=== PATIENT | female | born 1940 | race Caucasian/White ===

== ENCOUNTER 2017-05-29 15:07 | Emergency (ER) | payer MEDICARE, BC ==
[~2017-05-29] VITALS: Ht 170.2 cm; Wt 56.2 kg
[~2017-05-29 15:07] MED LIST: ALPR.25; ASPI81CH; ESOM20; Estradiol Tran1 EAC1; FLAXSEED1000 MG; GLUC500; LISI5 PO; Lisinopril2.5 MG; MAGOXI400; MULTI VITAMIN1 EACH; Omega 3 Fish O1 EACH; PROG100; SERT100; TEMA15
[2017-05-29 16:12] LABS: BASOPHILS ABSOLUTE AUTO 0.02 K/mm3 (0.00-0.23); BASOPHILS PERCENT AUTO 0 % (0-2); EOSINOPHILS ABSOLUTE AUTO 0.06 K/mm3 (0.00-0.68); EOSINOPHILS PERCENT AUTO 1 % (0-6); Hematocrit 33.7 % (33.0-51.0); Hemoglobin 11.1 g/dL (11.5-16.0); IMMATURE GRAN ABSOLUTE AUTO 0.02 K/mm3 (0.00-0.10); IMMATURE GRAN PERCENT AUTO 0 % (0-1); LYMPHOCYTES ABSOLUTE AUTO 0.95 K/mm3 (0.84-5.20); LYMPHOCYTES PERCENT AUTO 17 % (21-46); MONOCYTES ABSOLUTE AUTO 0.41 K/mm3 (0.16-1.47); MONOCYTES PERCENT AUTO 7 % (4-13); Mean Corpuscular HGB Conc 32.9 g/dL (31.5-36.5); Mean Corpuscular Volume 97 fL (80-100); Mean Platelet Volume 10.8 fL (9.1-12.4); NEUTROPHILS ABSOLUTE AUTO 4.12 K/mm3 (1.96-9.15); NEUTROPHILS PERCENT AUTO 74 % (41-73); Platelet Count 167 K/mm3 (150-400); RDW Coefficient Variation 13.4 % (11.7-14.2); Red Blood Cell Count 3.47 M/mm3 (3.80-5.20); White Blood Cell Count 5.58 K/mm3 (4.00-11.30)
[2017-05-29 16:23] LABS: Alanine Aminotransfer (ALT/SGP 21 U/L (12-78); Albumin, Blood 4.2 g/dL (3.4-5.0); Albumin/Globulin Ratio 1.1 (0.8-1.8); Alk Phos 56 U/L (50-136); Anion Gap 7 mmol/L (6-16); Aspartate Aminotrans (AST/SGOT 19 U/L (12-37); Bilirubin, Total 0.4 mg/dL (0.1-1.0); Blood Urea Nitrogen 17 mg/dL (8-24); Bun/Creatinine Ratio 18.6 (12.0-20.0); CO2, Blood 29 mmol/L (21-32); Calcium, Blood 9.3 mg/dL (8.5-10.1); Chloride, Blood 98 mmol/L (98-108); Creatinine, Blood 0.91 mg/dL (0.40-1.00); Globulin, Blood 3.9 g/dL (2.2-4.0); Glomerular Filtration Rate >60 (60-); Glucose, Blood 120 mg/dL (70-99); Potassium, Blood 3.6 mmol/L (3.5-5.5); Sodium, Blood 134 mmol/L (136-145); Total Protein, Blood 8.1 g/dL (6.4-8.2)
== END 2017-05-29 21:40 | disposition home or self-care (01) ==
LOC: ER 15:07
PROVIDERS: Emergency Medicine
DX: R56.9 Unspecified convulsions (principal); F32.9 Major depressive disorder, single episode, unspecified; F41.9 Anxiety disorder, unspecified
CPT/HCPCS: 70450; 80053; 85025; 93005; 93010; 99284

== ENCOUNTER 2017-07-13 08:47 | Day surgery (SDC) | payer MEDICARE, BC ==
[~2017-07-13] VITALS: Ht 170.2 cm; Wt 59.1 kg
== END 2017-07-13 10:01 | disposition home or self-care (01) ==
LOC: ORSCSDS 08:47
PROVIDERS: Anesthesiology
PROC: 3E0R33Z Introduction of Anti-inflammatory into Spinal Canal, Percutaneous Approach (ICD-10-PCS; principal; 2017-07-13 09:45)
DX: M51.16 Intervertebral disc disorders with radiculopathy, lumbar region (principal); M48.061 Spinal stenosis, lumbar region without neurogenic claudication; I10 Essential (primary) hypertension; E78.00 Pure hypercholesterolemia, unspecified; F41.8 Other specified anxiety disorders; G47.33 Obstructive sleep apnea (adult) (pediatric); Z79.82 Long term (current) use of aspirin; Z79.899 Other long term (current) drug therapy
CPT/HCPCS: J1040

== ENCOUNTER → 2017-10-30 | Outpatient (CLI) | payer MEDICARE, BC | END | disposition home or self-care (01) | LOC: PLD 14:15 → LAB SHORT 14:15 | DX: D48.5 Neoplasm of uncertain behavior of skin (principal) | CPT/HCPCS: 88305 ==

== ENCOUNTER → 2017-11-06 | Outpatient (CLI) | payer MEDICARE, BC ==
[2017-11-08 14:11] LABS: HPV 16 Negative (Negative); HPV 18 Negative (Negative); HPV OTHER HR TYPES Negative (Negative)
== END | disposition home or self-care (01) ==
LOC: LAB 13:50 → LAB SHORT 13:50
PROVIDERS: Nurse Practitioner Women's Health
DX: Z12.4 Encounter for screening for malignant neoplasm of cervix (principal); Z91.89 Other specified personal risk factors, not elsewhere classified
CPT/HCPCS: 87624; G0123

== ENCOUNTER → 2017-11-29 | Outpatient (CLI) | payer MEDICARE, BC | LOC: PLD 08:37 → LAB SHORT 08:37 | DX: C44.519 Basal cell carcinoma of skin of other part of trunk (principal) | CPT/HCPCS: 88305 ==

== ENCOUNTER → 2018-07-09 | Outpatient (CLI) | payer MEDICARE, BC | END | disposition home or self-care (01) | LOC: LAB 17:35 → LAB SHORT 17:35 | DX: N89.8 Other specified noninflammatory disorders of vagina (principal) | CPT/HCPCS: 87070; 87147; 87205 ==

== ENCOUNTER 2018-09-25 10:37 | Emergency (ER) | payer MEDICARE, BC ==
[~2018-09-25] VITALS: Ht 170.2 cm; Wt 60.8 kg
[2018-09-25] MEDS ORDERED: Prinivil10 MG PO (12:01)
[2018-09-25] MEDS ORDERED: ALEN70 PO (12:01)
[2018-09-25] MEDS ORDERED: ATOR10 PO (12:01)
[2018-09-25] MEDS ORDERED: CONEST.625 PO (12:03)
[2018-09-25] MEDS ORDERED: PROGESTERONE200 MG PO (12:04)
[2018-09-25] MEDS ORDERED: VENL150ER PO (12:05)
[2018-09-25] MEDS ORDERED: Imitrex100 MG (12:07)
[2018-09-25] MEDS ORDERED: TEMA15 PO (12:07)
[2018-09-25] MEDS ORDERED: MAGNESIUM250 MG PO (12:08)
[2018-09-25] MEDS ORDERED: FLAXSEED1000 MG PO (12:08)
[2018-09-25] MEDS ORDERED: TURMERIC 500 M1 EACH (12:10)
[2018-09-25] MEDS ORDERED: Fish Oil 10001000 MG PO (12:10)
[2018-09-25] MEDS ORDERED: THERA1 EACH PO (12:10)
[2018-09-25] MEDS ORDERED: VITAMIN D-32000 UNIT PO (12:11)
[2018-09-25] MEDS ORDERED: VITAMIN C500 M1 PO (12:12)
[2018-09-25] MEDS ORDERED: CYAN500 PO (12:12)
[2018-09-25] MEDS ORDERED: Norco 10-325 T1 EACH PO (12:13)
[2018-09-25] MEDS ORDERED: DICLOFENAC SOD100 G1 (12:13)
[2018-09-25] MEDS ORDERED: PROM25 (12:13)
[2018-09-25] MEDS ORDERED: Roxicodone5 MG PO (14:11)
== END 2018-09-25 14:44 | disposition home or self-care (01) ==
LOC: ER 10:37
DX: G89.29 Other chronic pain (principal); M54.5 Low back pain; M54.16 Radiculopathy, lumbar region; F41.9 Anxiety disorder, unspecified; F32.9 Major depressive disorder, single episode, unspecified; Z79.899 Other long term (current) drug therapy; Z98.1 Arthrodesis status
CPT/HCPCS: 72131; 99283-25

== ENCOUNTER → 2019-01-14 | Outpatient (CLI) | payer MEDICARE, BC ==
[~2019-01-14] MED LIST changes: +ALEN70 PO; +ATOR10 PO; +CONEST.625 PO; +CYAN500 PO; +DICLOFENAC SOD100 G1; +FLAXSEED1000 MG PO; +Fish Oil 10001000 MG PO; +Imitrex100 MG; +MAGNESIUM250 MG PO; +Norco 10-325 T1 EACH PO; +PROGESTERONE200 MG PO; +PROM25; +Prinivil10 MG PO; +Roxicodone5 MG PO; +TEMA15 PO; +THERA1 EACH PO; +TURMERIC 500 M1 EACH; +VENL150ER PO; +VITAMIN C500 M1 PO; +VITAMIN D-32000 UNIT PO
[2019-01-16 13:56] LABS: Stool Occult Bld Immuno 1 Negative (NEGATIVE)
== END | disposition home or self-care (01) ==
LOC: LAB EV 15:45
PROVIDERS: Hospitalist
DX: D64.9 Anemia, unspecified (principal)
CPT/HCPCS: G0328

== ENCOUNTER 2019-02-25 07:28 | Day surgery (SDC) | payer MEDICARE, BC ==
[~2019-02-25] VITALS: Ht 170.2 cm; Wt 61.0 kg
[~2019-02-25 07:28] MED LIST changes: -ALEN70 PO; +ALENDRONATE SOD35 MG PO; -DICLOFENAC SOD100 G1; -TURMERIC 500 M1 EACH; +TURMERIC 500 M1 EACH PO
== END 2019-02-25 23:05 | disposition home or self-care (01) ==
LOC: MHTC 07:28
DX: R55 Syncope and collapse (principal); I11.9 Hypertensive heart disease without heart failure; K21.9 Gastro-esophageal reflux disease without esophagitis; F32.9 Major depressive disorder, single episode, unspecified; F41.9 Anxiety disorder, unspecified; G43.909 Migraine, unspecified, not intractable, without status migrainosus; G47.33 Obstructive sleep apnea (adult) (pediatric); Z79.899 Other long term (current) drug therapy; Z87.891 Personal history of nicotine dependence; Z88.5 Allergy status to narcotic agent
CPT/HCPCS: 33285; C1764

== ENCOUNTER 2019-02-28 09:32 | Inpatient (IN) | payer MEDICARE, BC ==
[~2019-02-28] VITALS: Ht 170.2 cm; Wt 60.3 kg
[2019-02-28 11:14] LABS: BASOPHILS ABSOLUTE AUTO 0.03 K/mm3 (0.00-0.23); BASOPHILS PERCENT AUTO 1 % (0-2); EOSINOPHILS ABSOLUTE AUTO 0.03 K/mm3 (0.00-0.68); EOSINOPHILS PERCENT AUTO 1 % (0-6); Hematocrit 34.5 % (33.0-51.0); IMMATURE GRAN ABSOLUTE AUTO 0.01 K/mm3 (0.00-0.10); IMMATURE GRAN PERCENT AUTO 0 % (0-1); LYMPHOCYTES ABSOLUTE AUTO 0.89 K/mm3 (0.84-5.20); LYMPHOCYTES PERCENT AUTO 17 % (21-46); MONOCYTES PERCENT AUTO 6 % (4-13); Mean Corpuscular HGB 32.4 pg (26.0-34.0); Mean Corpuscular HGB Conc 31.9 g/dL (31.5-36.5); Mean Corpuscular Volume 102 fL (80-100); Mean Platelet Volume 10.3 fL (9.1-12.4); NEUTROPHILS ABSOLUTE AUTO 3.87 K/mm3 (1.96-9.15); NEUTROPHILS PERCENT AUTO 76 % (41-73); Platelet Count 177 K/mm3 (150-400); RDW Standard Deviation 48.8 fL (35.1-46.3); White Blood Cell Count 5.13 K/mm3 (4.00-11.30)
[2019-02-28 11:36] LABS: Alanine Aminotransfer (ALT/SGP 25 U/L (12-78); Albumin, Blood 3.8 g/dL (3.4-5.0); Albumin/Globulin Ratio 1.1 (0.8-1.8); Alk Phos 50 U/L (50-136); Anion Gap 6 mmol/L (6-16); Aspartate Aminotrans (AST/SGOT 27 U/L (12-37); Bilirubin, Total 0.6 mg/dL (0.1-1.0); Blood Urea Nitrogen 19 mg/dL (8-24); Bun/Creatinine Ratio 22.1 (12.0-20.0); CO2, Blood 28 mmol/L (21-32); Calcium, Blood 9.5 mg/dL (8.5-10.1); Chloride, Blood 107 mmol/L (98-108); Creatinine, Blood 0.86 mg/dL (0.40-1.00); Globulin, Blood 3.4 g/dL (2.2-4.0); Glomerular Filtration Rate >60 (60-); Glucose, Blood 109 mg/dL (70-99); Magnesium, Blood 2.2 mg/dL (1.6-2.4); Potassium, Blood 3.8 mmol/L (3.5-5.5); Sodium, Blood 141 mmol/L (136-145); Total Protein, Blood 7.2 g/dL (6.4-8.2); Troponin I <0.015 ng/mL (0.000-0.040)
[2019-02-28 11:41] LABS: Thyroid Stimulating Hormone 0.786 uIU/mL (0.360-4.800)
[2019-02-28] MEDS ORDERED: Clonazepam0.5 MG PO (12:40)
[2019-02-28] MEDS ORDERED: CLONAZEPAM1 MG PO (12:41)
[2019-02-28] MEDS ORDERED: YUVAFEM10 MCG VAG (12:42)
[2019-02-28] MEDS ORDERED: Aspir 8181 MG PO (13:01)
[2019-02-28] MEDS ORDERED: DICLOFENAC SOD100 G1 TOP (13:01)
[2019-02-28] MEDS ORDERED: ACET500 PO (13:02)
--- NOTE | 2019-02-28 17:30 | NUR ---
pt arrived to [facility] via gurney from [facility], she is a/ox3, pleasant and cooperative with care, follows commands well, denies complaints except a h/a, lungs are clear t/o, resp even and unlabored, no cough noted, hrr, tele in place running sr in the 60's per monitor, see strip, no edema noted, ppp+1, cap refill <3sec, vs stable, afebrile, iv sites are clear and patent, btx4, abd flat soft nontender, voids without diff, skin c/w/d, maew, rafy, call light in reach.
[2019-03-01 03:49] LABS: BASOPHILS ABSOLUTE AUTO 0.03 K/mm3 (0.00-0.23); BASOPHILS PERCENT AUTO 1 % (0-2); EOSINOPHILS ABSOLUTE AUTO 0.12 K/mm3 (0.00-0.68); EOSINOPHILS PERCENT AUTO 2 % (0-6); Hematocrit 35.8 % (33.0-51.0); Hemoglobin 11.5 g/dL (11.5-16.0); IMMATURE GRAN PERCENT AUTO 0 % (0-1); LYMPHOCYTES ABSOLUTE AUTO 1.34 K/mm3 (0.84-5.20); LYMPHOCYTES PERCENT AUTO 21 % (21-46); MONOCYTES ABSOLUTE AUTO 0.59 K/mm3 (0.16-1.47); MONOCYTES PERCENT AUTO 9 % (4-13); Mean Corpuscular HGB 31.8 pg (26.0-34.0); Mean Corpuscular HGB Conc 32.1 g/dL (31.5-36.5); Mean Platelet Volume 10.6 fL (9.1-12.4); NEUTROPHILS ABSOLUTE AUTO 4.25 K/mm3 (1.96-9.15); NEUTROPHILS PERCENT AUTO 67 % (41-73); Platelet Count 160 K/mm3 (150-400); RDW Coefficient Variation 12.8 % (11.7-14.2); RDW Standard Deviation 46.7 fL (35.1-46.3); Red Blood Cell Count 3.62 M/mm3 (3.80-5.20); White Blood Cell Count 6.33 K/mm3 (4.00-11.30)
[2019-03-01 03:52] LABS: Mean Corpuscular Volume 99 fL (80-100)
[2019-03-01 04:06] LABS: Albumin, Blood 3.6 g/dL (3.4-5.0); Anion Gap 5 mmol/L (6-16); Blood Urea Nitrogen 18 mg/dL (8-24); Bun/Creatinine Ratio 19.3 (12.0-20.0); CO2, Blood 28 mmol/L (21-32); Calcium, Blood 9.2 mg/dL (8.5-10.1); Chloride, Blood 109 mmol/L (98-108); Creatinine, Blood 0.93 mg/dL (0.40-1.00); Glomerular Filtration Rate >60 (60-); Glucose, Blood 99 mg/dL (70-99); Phosphorus, Blood 3.3 mg/dL (2.5-4.9); Potassium, Blood 3.9 mmol/L (3.5-5.5); Sodium, Blood 142 mmol/L (136-145)
--- NOTE | 2019-03-01 05:20 | NUR ---
SHIFT SUMMARY PT A&O X4. VSS. PT DENIES LIGHTHEADEDNESS, DIZZINESS, PAIN. PT ONLY C/O HEADACHE UPON CARE ASSUMPTION X1 THIS SHIFT. PACER INSERTION TO L CHEST WALL W/ DRESSING C/D/I. MONITOR SHOWS OCCASSIONAL PACING, HR 60's-90's W/ BRIEF TOUCH UP TO ST 120's, X1 THIS SHIFT DURING AMBULATION TO BATHROOM AND PT BEING UP IN ROOM. PT W/ NO FURTHER EVENTS. SLEEPING MAJORITY OF SHIFT. PT REPORTS LOOKING FORWARD TO BEING BACK HOME W/ AND DOGS. WILL CONTINUE TO MONITOR AND PROVIDE CARE UNTIL REPORT OFF TO DAY SHIFT RN.
--- NOTE | 2019-03-01 08:25 | NUR ---
ASSUMED CARE APPROXIMATELY 0700; PT A&O; PT ON RA; O2 SATS >95; SPOUSE AT BEDSIDE; DR. CORREA AT BEDSIDE EDUCATING PT ON S/S OF INFECTION AND CARE OF PACE MAKER; PT DENIES CHEST PAIN; DENIES NEEDS; PT EXRESSES APPRECIATION OF STAFF AND CARE RECEIVED; PT EXPECTED TO BE DISCHARGED; CALL LIGHT IN REACH; BED IN LOWEST POSITION; WILL CONTINUE TO MONITOR CLOSELY
[2019-03-01] MEDS ORDERED: OXYC5 PO (09:52)
--- NOTE | 2019-03-01 10:41 | NUR ---
PT PREPARED FOR DISCHARGE; EDUCATION ON FOLLOW UP APPOINTMENTS AND NEW MEDICATION; PT AND SPOUSE VERBALIZED UNDERSTANDING; OXYCODONE PRESCRIPTION HANDED TO SPOUSE IN VIEW OF PT, SPOUSE FOLDED PRESCRIPTION AND PLACED IN HIS WALLET AND POCKET; IV REMOVED WHOLE AND INTACT; PT DRESSED SELF; ESCORTED BY AID VIA WHEELCHAIR WITH ALL BELONGINGS AND PURSE ON HER LAP
== END 2019-03-01 10:47 | disposition home or self-care (01) | DRG 243 ==
LOC: ER 09:32 → PCU 12:50 → ER 14:15 → PCU 17:27
PROVIDERS: Emergency Medicine; ADMIT Internal Medicine Gastroenterology
PROC: 0JH606Z Insertion of Pacemaker, Dual Chamber into Chest Subcutaneous Tissue and Fascia, Open Approach (ICD-10-PCS; principal; 2019-02-28)
PROC: 02HK3JZ Insertion of Pacemaker Lead into Right Ventricle, Percutaneous Approach (ICD-10-PCS; 2019-02-28)
PROC: 02H63JZ Insertion of Pacemaker Lead into Right Atrium, Percutaneous Approach (ICD-10-PCS; 2019-02-28)
DX: I49.5 Sick sinus syndrome (principal); I45.89 Other specified conduction disorders; I45.5 Other specified heart block; Z86.73 Personal history of transient ischemic attack (TIA), and cerebral infarction without residual deficits; Z87.891 Personal history of nicotine dependence; M81.0 Age-related osteoporosis without current pathological fracture; E78.00 Pure hypercholesterolemia, unspecified; I10 Essential (primary) hypertension; G89.29 Other chronic pain; M54.9 Dorsalgia, unspecified
CPT/HCPCS: 33208; 33286; 36415; 71046; 80053; 80069; 83735; 84443; 84484; 85025; 93005; 93010; 93299; 96365; 99152; 99153; 99285-25; A9270; C1785; C1898; J0690; J1644; J2250; J3010; J3480; J7030; J7040; Q9967

== ENCOUNTER → 2019-03-15 | Outpatient (CLI) | payer MEDICARE, BC ==
[~2019-03-15] MED LIST changes: +ACET500 PO; +Aspir 8181 MG PO; +CLONAZEPAM1 MG PO; +Clonazepam0.5 MG PO; +DICLOFENAC SOD100 G1 TOP; +OXYC5 PO; +YUVAFEM10 MCG VAG
[2019-03-15 16:06] LABS: BASOPHILS ABSOLUTE AUTO 0.03 K/mm3 (0.00-0.23); BASOPHILS PERCENT AUTO 1 % (0-2); EOSINOPHILS PERCENT AUTO 0 % (0-6); Hematocrit 30.9 % (33.0-51.0); Hemoglobin 10.1 g/dL (11.5-16.0); IMMATURE GRAN ABSOLUTE AUTO 0.03 K/mm3 (0.00-0.10); IMMATURE GRAN PERCENT AUTO 1 % (0-1); LYMPHOCYTES ABSOLUTE AUTO 0.89 K/mm3 (0.84-5.20); LYMPHOCYTES PERCENT AUTO 14 % (21-46); MONOCYTES ABSOLUTE AUTO 0.35 K/mm3 (0.16-1.47); MONOCYTES PERCENT AUTO 5 % (4-13); Mean Corpuscular HGB 32.5 pg (26.0-34.0); Mean Corpuscular HGB Conc 32.7 g/dL (31.5-36.5); Mean Corpuscular Volume 99 fL (80-100); Mean Platelet Volume 10.7 fL (9.1-12.4); NEUTROPHILS ABSOLUTE AUTO 5.24 K/mm3 (1.96-9.15); NEUTROPHILS PERCENT AUTO 80 % (41-73); Platelet Count 169 K/mm3 (150-400); RDW Coefficient Variation 13.2 % (11.7-14.2); Red Blood Cell Count 3.11 M/mm3 (3.80-5.20); White Blood Cell Count 6.54 K/mm3 (4.00-11.30)
[2019-03-15 16:15] LABS: Alanine Aminotransfer (ALT/SGP 21 U/L (12-78); Albumin, Blood 3.7 g/dL (3.4-5.0); Albumin/Globulin Ratio 1.3 (0.8-1.8); Alk Phos 44 U/L (40-126); Anion Gap 9 mmol/L (6-16); Aspartate Aminotrans (AST/SGOT 21 U/L (12-37); Bilirubin, Total 0.4 mg/dL (0.1-1.0); Blood Urea Nitrogen 17 mg/dL (8-24); Bun/Creatinine Ratio 19.8 (12.0-20.0); CO2, Blood 27 mmol/L (21-32); Calcium, Blood 8.9 mg/dL (8.5-10.1); Chloride, Blood 103 mmol/L (98-108); Creatinine, Blood 0.86 mg/dL (0.40-1.00); Globulin, Blood 2.9 g/dL (2.2-4.0); Glomerular Filtration Rate >60 (60-); Glucose, Blood 108 mg/dL (70-99); Potassium, Blood 4.1 mmol/L (3.5-5.5); Sodium, Blood 139 mmol/L (136-145); Total Protein, Blood 6.6 g/dL (6.4-8.2)
== END ==
LOC: LAB SHORT 16:00 → LAB EV 16:00
PROVIDERS: Nurse Practitioner
DX: R11.2 Nausea with vomiting, unspecified (principal)
CPT/HCPCS: 80053; 83690; 85025

== ENCOUNTER → 2019-10-10 | Outpatient (CLI) | payer MEDICARE, BC ==
[2019-10-10 13:01] LABS: Creatinine Urine 25.7 mg/dL (27.00-270.00); Microalbumin, Urine Quant. 14.5 mg/L (0.000-20.000); Protein, Urine Quantitative 11.9 mg/dL (0.0-11.9)
== END | disposition home or self-care (01) ==
LOC: LAB SHORT 11:13 → LAB 11:13 → EDSTATUS 10-07 08:55 → LAB FUT 10-07 08:55
PROVIDERS: Internal Medicine Nephrology
DX: N18.3 Chronic kidney disease, stage 3 (moderate) (principal); D63.1 Anemia in chronic kidney disease; N25.81 Secondary hyperparathyroidism of renal origin; E55.9 Vitamin D deficiency, unspecified; E78.00 Pure hypercholesterolemia, unspecified; M10.9 Gout, unspecified; R80.9 Proteinuria, unspecified; D51.8 Other vitamin B12 deficiency anemias; D52.8 Other folate deficiency anemias; D50.9 Iron deficiency anemia, unspecified; R76.9 Abnormal immunological finding in serum, unspecified; R94.5 Abnormal results of liver function studies; R94.6 Abnormal results of thyroid function studies
CPT/HCPCS: 81050; 82043; 82570; 84156

== ENCOUNTER 2020-08-18 06:16 | Inpatient (IN) | payer MEDICARE, BC ==
[~2020-08-18] VITALS: Ht 170.2 cm; Wt 65.6 kg
[~2020-08-18 06:16] MED LIST changes: +Abilify2 MG PO; +ESTRADIOL PO; +FERSU300 PO; +FISH OIL PO; +PROGESTERONE200 M1 PO; +SUMA25 PO; +THERA-D2000 UNIT PO; +TURMERIC500 M2 PO; -VITAMIN D-32000 UNIT PO; +Voltaren100 GM TOP
--- NOTE | 2020-08-18 12:08 | NUR ---
PATIENT CAME BACK FROM PACU AT AROUND 11:30 TODAY 08/18/20. SHE IS POD 0 OF RIGHT SHOULDER REPAIR. PATIENT IS SLEEPY BUT IS EASILY AROUSABLE. WHEN AWAKE SHE IS ALERT AND ORIENTED X4. VS ARE WNL AND IS ON 2L NC ON OXYGEN. SHE IS ABLE TO WIGGLE FINGERS AND TOES. DENIES NUMBNESS OR TINGLING. RIGHT SHOULDER IS IN GAUZE AND FOAM TAPE AND IS C/D/I. PATIENT DENIES PAIN AT THIS TIME. POLAR PACK IS ON THE RIGHT SHOULDER. CALL LIGHT WITHIN REACH.
--- NOTE | 2020-08-18 17:18 | NUR ---
SHIFT SUMMARY: POD 0 RIGHT TOTAL SHOULDER REPAIR PATIENT IS ALERT AND ORIENTED X4. VS ARE WNL AND IS ON RA. PATIENT DENIES ANY PAIN AT THIS TIME BUT HAS HAD HER SCHEDULED TYLENOL. SHE HAS HER IMMOBILIZER ON AND DRESSING IS C/D/I. SHE IS ABLE TO WIGGLE FINGERS AND TOES. DENIES ANY NUMBNESS AND TINGLING. IS CURRENTLY IN THE ROOM. BOTH OF THEM ARE WATCHING TV. CALL LIGHT IS WITHIN REACH. THE PLAN IS TO WORK WITH PT/OT TOMORROW AND POSSIBLY BE DISCHARGED HOME TOMORROW WITH HOME HEALTH.
--- NOTE | 2020-08-19 04:04 | NUR ---
A/OX4. VSS ON RA. C/O MIGRAINE, IMITREX GIVEN W/ GOOD EFFECT. PATIENT NAUSEAS IN EVENING, ZOFRAN GIVEN. PAIN MANAGED WELL W/ SCHEDULED PAIN MEDS. AMBULATED IN HALLWAY 1X. SLEEPING B/W CARE.
[2020-08-19 05:02] LABS: BASOPHILS ABSOLUTE AUTO 0.03 K/mm3 (0.00-0.23); BASOPHILS PERCENT AUTO 0 % (0-2); EOSINOPHILS ABSOLUTE AUTO 0.08 K/mm3 (0.00-0.68); EOSINOPHILS PERCENT AUTO 1 % (0-6); Hematocrit 29.9 % (33.0-51.0); Hemoglobin 9.7 g/dL (11.5-16.0); IMMATURE GRAN ABSOLUTE AUTO 0.04 K/mm3 (0.00-0.10); IMMATURE GRAN PERCENT AUTO 1 % (0-1); LYMPHOCYTES ABSOLUTE AUTO 1.17 K/mm3 (0.84-5.20); LYMPHOCYTES PERCENT AUTO 17 % (21-46); MONOCYTES ABSOLUTE AUTO 1.02 K/mm3 (0.16-1.47); MONOCYTES PERCENT AUTO 15 % (4-13); Mean Corpuscular HGB 32.6 pg (26.0-34.0); Mean Corpuscular HGB Conc 32.4 g/dL (31.5-36.5); Mean Corpuscular Volume 100 fL (80-100); Mean Platelet Volume 10.6 fL (9.1-12.4); NEUTROPHILS ABSOLUTE AUTO 4.54 K/mm3 (1.96-9.15); NEUTROPHILS PERCENT AUTO 66 % (41-73); Platelet Count 131 K/mm3 (150-400); RDW Coefficient Variation 13.5 % (11.7-14.2); RDW Standard Deviation 49.6 fL (35.1-46.3); Red Blood Cell Count 2.98 M/mm3 (3.80-5.20); White Blood Cell Count 6.88 K/mm3 (4.00-11.30)
[2020-08-19 05:27] LABS: Bun/Creatinine Ratio 23.1 (12.0-20.0); Calcium, Blood 8.2 mg/dL (8.5-10.1); Creatinine, Blood 1.08 mg/dL (0.40-1.00); Magnesium, Blood 2.3 mg/dL (1.6-2.4); Potassium, Blood 4.1 mmol/L (3.5-5.5)
--- NOTE | 2020-08-19 06:20 | NUR ---
A/OX4. VSS ON RA. PAIN MANAGED WELL W/ COLD THERAPY AND SCHEDULED PAIN MEDS. TOLERARED CPAP WHEN ASLEEP. C/O NAUSEA IN EVENING, ZOFRAN GIVEN. SLEEPING B/W CARE. USING CALL LIGHT TO MAKE NEEDS KNOWN. AMBULATED IN HALLWAY 1X.
[2020-08-19] MEDS ORDERED: BACTRIM DS TAB1 EAC6 PO (07:17)
[2020-08-19] MEDS ORDERED: OXAYDO5 M1 PO (07:17)
--- NOTE | 2020-08-19 09:27 | NUR ---
08/19/20 0927 Joanie Toro VERIFICATIONS: EDIT CHART.
--- NOTE | 2020-08-19 11:14 | NUR ---
1045 PROVIDED DISCHARGE INFORMATION AND TEACHING,IV REMOVED. ENSURED PT HAD ALL BELONGINGS AND POLAR PACK IN HER POSSESSION. TRANSPORTED PT VIA WHEELCHAIR TO [facility] WHERE HER PICKED HER UP. PT COMFORTABLE GOING HOME.
[2020-08-20] MEDS ORDERED: EFFEXOR XR150 MG PO (11:46)
[2020-08-20] MEDS ORDERED: ESTRADIOL42.5 GM VAG (11:47)
[2020-08-20] MEDS ORDERED: TOPI50 PO (11:48)
[2020-10-19] MEDS ORDERED: THERA-D2000 UNIT PO (09:17)
[2020-10-19] MEDS ORDERED: TEMA15 PO (09:17)
== END 2020-08-19 11:30 | disposition home or self-care (01) | DRG 483 ==
LOC: ORSCMMR 06:16 → SURS 07:15 → ORSCMMR 07:15 → ORD 07:30 → ORSCMMR 07:30 → SURS 11:04
PROVIDERS: ADMIT Orthopaedic Surgery
PROC: 0LS30ZZ Reposition Right Upper Arm Tendon, Open Approach (ICD-10-PCS; 2020-08-18)
PROC: 0RRJ00Z Replacement of Right Shoulder Joint with Reverse Ball and Socket Synthetic Substitute, Open Approach (ICD-10-PCS; principal; 2020-08-18 07:30)
DX: M13.811 Other specified arthritis, right shoulder (principal); Z79.899 Other long term (current) drug therapy; K21.9 Gastro-esophageal reflux disease without esophagitis; I10 Essential (primary) hypertension; F32.9 Major depressive disorder, single episode, unspecified; Z85.828 Personal history of other malignant neoplasm of skin; F41.9 Anxiety disorder, unspecified; Z90.49 Acquired absence of other specified parts of digestive tract; Z98.890 Other specified postprocedural states; Z95.0 Presence of cardiac pacemaker; G89.29 Other chronic pain; M54.5 Low back pain; G43.909 Migraine, unspecified, not intractable, without status migrainosus
CPT/HCPCS: 36415; 73030; 80048; 83735; 85025; 94762; 97110; 97116; 97162; 97166; 97530; 97535; A9270; C1713; C1776; J0171; J0696; J0735; J1100; J1885; J2370; J2405; J2704; J2795; J3010; J7030; J7120

== ENCOUNTER 2020-08-20 07:51 | Observation (INO) | payer MEDICARE, BC ==
[~2020-08-20] VITALS: Ht 170.2 cm; Wt 65.6 kg
[~2020-08-20 07:51] MED LIST changes: +BACTRIM DS TAB1 EAC6 PO; +OXAYDO5 M1 PO
[2020-08-20 08:53] LABS: BASOPHILS ABSOLUTE AUTO 0.03 K/mm3 (0.00-0.23); BASOPHILS PERCENT AUTO 0 % (0-2); EOSINOPHILS ABSOLUTE AUTO 0.07 K/mm3 (0.00-0.68); EOSINOPHILS PERCENT AUTO 1 % (0-6); Hematocrit 35.1 % (33.0-51.0); Hemoglobin 11.4 g/dL (11.5-16.0); IMMATURE GRAN ABSOLUTE AUTO 0.03 K/mm3 (0.00-0.10); IMMATURE GRAN PERCENT AUTO 0 % (0-1); LYMPHOCYTES ABSOLUTE AUTO 0.64 K/mm3 (0.84-5.20); LYMPHOCYTES PERCENT AUTO 8 % (21-46); MONOCYTES ABSOLUTE AUTO 0.97 K/mm3 (0.16-1.47); MONOCYTES PERCENT AUTO 12 % (4-13); Mean Corpuscular HGB 32.5 pg (26.0-34.0); Mean Corpuscular HGB Conc 32.5 g/dL (31.5-36.5); Mean Corpuscular Volume 100 fL (80-100); Mean Platelet Volume 10.5 fL (9.1-12.4); NEUTROPHILS ABSOLUTE AUTO 6.22 K/mm3 (1.96-9.15); NEUTROPHILS PERCENT AUTO 78 % (41-73); Platelet Count 145 K/mm3 (150-400); RDW Coefficient Variation 13.2 % (11.7-14.2); RDW Standard Deviation 48.5 fL (35.1-46.3); Red Blood Cell Count 3.51 M/mm3 (3.80-5.20); White Blood Cell Count 7.96 K/mm3 (4.00-11.30)
[2020-08-20 09:10] LABS: Alanine Aminotransfer (ALT/SGP 46 U/L (12-78); Albumin, Blood 3.7 g/dL (3.4-5.0); Alk Phos 72 U/L (50-136); Anion Gap 3 mmol/L (6-16); Aspartate Aminotrans (AST/SGOT 32 U/L (12-37); Bilirubin, Total 0.5 mg/dL (0.1-1.0); Blood Urea Nitrogen 14 mg/dL (8-24); Bun/Creatinine Ratio 15.7 (12.0-20.0); CO2, Blood 31 mmol/L (21-32); Calcium, Blood 9.2 mg/dL (8.5-10.1); Chloride, Blood 102 mmol/L (98-108); Creatinine, Blood 0.89 mg/dL (0.40-1.00); Globulin, Blood 3.7 g/dL (2.2-4.0); Glomerular Filtration Rate >60 (60-); Glucose, Blood 121 mg/dL (70-99); Potassium, Blood 3.8 mmol/L (3.5-5.5); Sodium, Blood 136 mmol/L (136-145); Total Protein, Blood 7.4 g/dL (6.4-8.2); Troponin I 0.047 ng/mL (0.000-0.040)
[2020-08-20 09:24] LABS: Source, Urine Voided
[2020-08-20 09:30] LABS: Appearance, Urine Clear (Clear); Bilirubin, Urine Neg (Neg); Blood, Urine 1+ (Neg); Color, Urine Yellow (P-Yellow); Glucose Qualitative, Urine Neg (Neg); Ketones, Urine 2+ (Neg); Leukocyte Esterase, Urine Neg (Neg); Nitrite, Urine Neg (Neg); Protein, Urine 1+ (Neg); Specific Gravity, Urine 1.005 (1.003-1.022); Urobilinogen, Urine NORM (Normal)
[2020-08-20 09:39] LABS: Bacteria Not Seen /hpf; Red Blood Cells, Urine 0-2 /hpf (0-2); Squamous Epithelial Cells Rare /hpf (Few); White Blood Cells, Urine Not Seen /hpf (0-5)
[2020-08-20] MEDS ORDERED: EFFEXOR XR150 MG PO (11:46)
[2020-08-20] MEDS ORDERED: ESTRADIOL42.5 GM VAG (11:47)
[2020-08-20] MEDS ORDERED: TOPI50 PO (11:48)
--- NOTE | 2020-08-20 13:51 | NUR ---
ASSUMED CARE: PT ARRIVES TO ROOM WITH RIGHT SHOULDER IN A SLING AFTER SURGERY 2 DAYS AGO. PT'S S.O. AT BEDSIDE ANSWERING MEDICAL QUESTIONS. STATES THAT PT'S SHORT TERM MEMORY HAS BEEN DECLINING OVER THE PAST FEW YEARS. PT DENIES CHEST PAIN OR ABDOMINAL PAIN AND STATES SHE HAS NO NAUSEA AFTER ED TREATMENT. STATES SHE HAS NOT HAD A BM IN SEVERAL DAYS. NO IMAGING PREFORMED IN ED. CALL TO DR LANDEROS TO SEE IF ABDOMINAL IMAGING SHOULD BE DONE TO R/O ILEUS. DR MILLER STATES HE WILL DISCUSS WITH DR MAY WHO ADMITTED. SQUADRON WORKER AT BEDSIDE AT THIS TIME. NO FURTHER NEEDS OR CONCERNS AT PRESENT.
--- NOTE | 2020-08-20 19:18 | NUR ---
SHIFT SUMMARY PATIENT A&OX2. POD#2 FROM SHOULDER REPLACEMENT. DENIES NAUSEA OR ABDOMINAL PAIN T/O SHIFT WELL AT CHEST PAIN OR PRESSURE. PATIENT WAS REMINDED TO USE THE CALL LIGHT SYSTEM UPON GETTING OUT OF BED DUE TO ARM IN SLING AND IVF INFUSING. S/O AT THE BEDSIDE AND ANSWERS QUESTIONS FOR THE PATIENT. S/O MADE IT AWARE TO STAFF THAT HE IS THE PATIENT'S CAREGIVER. PLAN IS TO TREND [facility] AND TO DISCHARGE IN THE NEXT COUPLE OF DAYS.
[2020-08-21 04:54] LABS: BASOPHILS ABSOLUTE AUTO 0.05 K/mm3 (0.00-0.23); BASOPHILS PERCENT AUTO 1 % (0-2); EOSINOPHILS ABSOLUTE AUTO 0.24 K/mm3 (0.00-0.68); EOSINOPHILS PERCENT AUTO 3 % (0-6); Hematocrit 35.3 % (33.0-51.0); Hemoglobin 11.2 g/dL (11.5-16.0); IMMATURE GRAN ABSOLUTE AUTO 0.03 K/mm3 (0.00-0.10); IMMATURE GRAN PERCENT AUTO 0 % (0-1); LYMPHOCYTES ABSOLUTE AUTO 1.14 K/mm3 (0.84-5.20); LYMPHOCYTES PERCENT AUTO 15 % (21-46); MONOCYTES ABSOLUTE AUTO 1.14 K/mm3 (0.16-1.47); MONOCYTES PERCENT AUTO 15 % (4-13); Mean Corpuscular HGB 31.9 pg (26.0-34.0); Mean Corpuscular HGB Conc 31.7 g/dL (31.5-36.5); Mean Corpuscular Volume 101 fL (80-100); NEUTROPHILS ABSOLUTE AUTO 5.09 K/mm3 (1.96-9.15); NEUTROPHILS PERCENT AUTO 66 % (41-73); Platelet Count 158 K/mm3 (150-400); RDW Coefficient Variation 13.2 % (11.7-14.2); RDW Standard Deviation 48.7 fL (35.1-46.3); Red Blood Cell Count 3.51 M/mm3 (3.80-5.20); White Blood Cell Count 7.69 K/mm3 (4.00-11.30)
[2020-08-21 05:16] LABS: Anion Gap 4 mmol/L (6-16); Blood Urea Nitrogen 12 mg/dL (8-24); CO2, Blood 29 mmol/L (21-32); Calcium, Blood 9.3 mg/dL (8.5-10.1); Chloride, Blood 104 mmol/L (98-108); Glomerular Filtration Rate >60 (60-); Glucose, Blood 100 mg/dL (70-99); Potassium, Blood 3.7 mmol/L (3.5-5.5); Sodium, Blood 137 mmol/L (136-145); Troponin I 0.039 ng/mL (0.000-0.040)
--- NOTE | 2020-08-21 06:28 | NUR ---
FREELANCE GRAPHIC DESIGNER SUMMARY PT A/O X4 WITH FORTGETFULNESS. SLEPT WELL OVERNIGHT, CPAP IN PLACE. PLEASANT AND COOPERATIVE. PT DENIED HEADACHE, CHEST PAIN, AND OTHER DISCOMFORTS. RIGHT SHOULDER SLING IN PLACE. DENIED NAUSEA, SOB. NO ACUTE CHANGES. BED ALARM ON, CALL LIGHT WITHIN REACH.
--- NOTE | 2020-08-21 18:16 | NUR ---
SHIFT SUMMARY. A&OX4, FORGETFUL AT TIMES ALTHOUGH REORIENTS EASILY, PT FORGETS TO USE CALL LIGHT AT TIMES, BED AND CHAIR ALARM UTILIZED FOR SAFETY. PT DENIES SOB, N/V. PT REPORTED INCREASED APPETITE AT DINNER TIME, DR. LANDEROS NOTIFIED AND DIET UPGRADED FROM FULL LIQUIDS TO CARDIAC. PT REPORTS CHRONIC MIGRAINE TYPE PAIN DURING SHIFT, IMMITREX ORDERED CLARIFIED WITH DR. LANDEROS AND DOSING AND FREQUENCY DECREASED. PT RECIEVED SHOWER TODAY, DRESSING TO R SHOULDER REMAINED C/D/I. SURGICAL WOUND ASSESSED AND PHOTO DOCUMENTED, NO S/SX OF INFECTION, WOUND EDGES WELL APPROXIMATED. PT REMAINED IN SLING FOR MOST OF THE SHIFT EXCEPT DURING SHOWER. CONTINUES WITH MAINTENCE IV FLUIDS. IN TO VISIT THIS AFTERNOON. NO OTHER CHANGES OR CONCERNS.
--- NOTE | 2020-08-22 04:32 | NUR ---
LEAD TECHNICIAN SUMMARY PT A/O X3 WITH FORGETFULNESS. MEDICATED FOR SLEEP TONIGHT REQUESTED BY PT. VSS. TELE RUNNING NSR IN THE 80'S PER CONTINUUM OF CARE MANAGER. DENIES PAIN, NAUSEA, SOB. PT IS NON-COMPLIANT WITH CPAP. MAINTAINING GOOD 02 SATS. BED ALARM ON, CALL LIGHT WITHIN REACH. WILL CONTINUE TO MONITOR.
--- NOTE | 2020-08-22 07:35 | NUR ---
ASSUMED CARE: PT AWAKE AND TALKING TO STAFF. NSR ON TELE. BED ALARM AND CHAIR ALARMS ON, CONFUSION AT TIMES. STATES SHE WANTS TO GO HOME TODAY. NO ACUTE NEEDS OR CONCERNS AT THIS TIME.
[2020-08-22] MEDS ORDERED: FAMO20 PO (09:30)
[2020-08-22] MEDS ORDERED: DOCU100 PO (09:30)
--- NOTE | 2020-08-22 10:52 | NUR ---
DISCHARGE: PT'S SIGNIFICANT OTHER RECIEVED A CALL FROM DR LANDEROS. SIGNIFICANT OTHER CAME IN TO PICK HER UP AND INSTRUCTIONS WERE GIVEN REGARDING NEW MEDICATIONS. CLARIFIED WITH DR LANDEROS THAT PT IS TO NOT HAVE ANTIBIOTIC. PT'S S/O WAS STILL CONCERNED SO HE WAS INSTRUCTED TO CONTACT THE ORTHO OFFICE TO DOUBLE CHECK WITH HIM. DUE TO [facility]ID[employer] WEEKEND INSTRUCTED THEM TO CONTACT MEDICAL FLOOR FOR ANY QUESTIONS. ESCORTED OUT VIA WHEEL CHAIR BY LOW HEEL BUILDER. SOFIA GALVAN'Charmaine ROSA.
[2020-10-19] MEDS ORDERED: TEMA15 PO (09:17)
[2020-10-19] MEDS ORDERED: THERA-D2000 UNIT PO (09:17)
== END 2020-08-22 10:49 | disposition home or self-care (01) ==
LOC: ER 07:51 → MEDS 07:52 → ER 07:52 → MEDS 07:53
PROVIDERS: Family Medicine; Physician Assistant; ADMIT Family Medicine
DX: R10.13 Epigastric pain (principal); R63.0 Anorexia; R11.0 Nausea; E86.0 Dehydration; R53.1 Weakness; R77.8 Other specified abnormalities of plasma proteins; I12.9 Hypertensive chronic kidney disease with stage 1 through stage 4 chronic kidney disease, or unspecified chronic kidney disease; N18.30 Chronic kidney disease, stage 3 unspecified; F17.210 Nicotine dependence, cigarettes, uncomplicated; Z88.5 Allergy status to narcotic agent; Z66 Do not resuscitate; Z96.611 Presence of right artificial shoulder joint
CPT/HCPCS: 36415; 80048; 80053; 81001; 83690; 84484; 85025; 93005; 93010; 96361; 96372; 96374; 99285-25; A9270; G0378; J1650; J2405; J3480; J7030

== ENCOUNTER 2020-10-26 07:40 | Day surgery (SDC) | payer MEDICARE, BC ==
[~2020-10-26] VITALS: Ht 170.2 cm; Wt 66.7 kg
[~2020-10-26 07:40] MED LIST changes: +DOCU100 PO; +EFFEXOR XR150 MG PO; +ESTRADIOL42.5 GM VAG; +FAMO20 PO; +TOPI50 PO
== END 2020-10-26 10:12 | disposition home or self-care (01) ==
LOC: ORSCSDS 07:40
PROVIDERS: Surgery
PROC: 0DBL8ZX Excision of Transverse Colon, Via Natural or Artificial Opening Endoscopic, Diagnostic (ICD-10-PCS; principal; 2020-10-26 08:45)
PROC: 0DBH8ZX Excision of Cecum, Via Natural or Artificial Opening Endoscopic, Diagnostic (ICD-10-PCS; principal; 2020-10-26 08:45)
PROC: 0DBK8ZX Excision of Ascending Colon, Via Natural or Artificial Opening Endoscopic, Diagnostic (ICD-10-PCS; principal; 2020-10-26 08:45)
DX: R19.5 Other fecal abnormalities (principal); D12.0 Benign neoplasm of cecum; D12.2 Benign neoplasm of ascending colon; K57.30 Diverticulosis of large intestine without perforation or abscess without bleeding; E11.22 Type 2 diabetes mellitus with diabetic chronic kidney disease; I12.9 Hypertensive chronic kidney disease with stage 1 through stage 4 chronic kidney disease, or unspecified chronic kidney disease; N18.30 Chronic kidney disease, stage 3 unspecified; E78.5 Hyperlipidemia, unspecified; G47.33 Obstructive sleep apnea (adult) (pediatric); F41.8 Other specified anxiety disorders; Z95.0 Presence of cardiac pacemaker; Z79.899 Other long term (current) drug therapy
CPT/HCPCS: 88305; J2704; J7120

== ENCOUNTER → 2020-12-07 | Outpatient (CLI) | payer MEDICARE, BC ==
[2020-12-08 10:01] LABS: Candida species (DNA Probe) Negative (NEGATIVE); G. vaginalis (DNA Probe) Negative (NEGATIVE); T. vaginalis (DNA Probe) Negative (NEGATIVE)
== END | disposition home or self-care (01) ==
LOC: LAB SHORT 11:20 → LAB 11:20
PROVIDERS: Obstetrics & Gynecology
DX: N76.0 Acute vaginitis (principal)
CPT/HCPCS: 87480; 87510; 87660

== ENCOUNTER → 2021-07-05 | Outpatient (CLI) | payer MEDICARE, BC ==
[2021-07-06 10:10] LABS: Candida species (DNA Probe) Negative (NEGATIVE); G. vaginalis (DNA Probe) Negative (NEGATIVE); T. vaginalis (DNA Probe) Negative (NEGATIVE)
== END | disposition home or self-care (01) ==
LOC: LAB SHORT 13:50
PROVIDERS: Obstetrics & Gynecology
DX: N95.2 Postmenopausal atrophic vaginitis (principal)
CPT/HCPCS: 87480; 87510; 87660

== ENCOUNTER 2021-08-29 06:19 | Day surgery (SDC) | payer MEDICARE, BC ==
[~2021-08-29] VITALS: Ht 170.2 cm; Wt 65.5 kg
[2021-08-29] MEDS ORDERED: Amlodipine Bes2.5 MG PO (07:25)
[2021-08-29] MEDS ORDERED: DONEPEZIL HCL10 MG PO (07:26)
[2021-08-29] MEDS ORDERED: AZELASTINE HCL6 ML OP (07:26)
[2021-08-29] MEDS ORDERED: Inderal60 MG PO (07:53)
[2021-08-29] MEDS ORDERED: TIZA4 PO (07:54)
[2021-08-29] MEDS ORDERED: VENL150ER PO (07:54)
--- NOTE | 2021-08-29 08:48 | NUR ---
08/29/21 0848 Kely Cruz A BEACH CHAIR WITH T MAX AND SPIDER. WEDGE UNDER KNEES. GEL UNDER RIGHT ARM AND X2 SEAT BELTS. BILATERAL LATERAL POSITIONERS IN PLACE. HEAD SECURED WITH FOAM MASK. POSITON VERIFIED BY SURGEON AND ANESTHESIOLOGIST.
--- NOTE | 2021-08-29 10:43 | NUR ---
08/29/21 1043 MIKHAIL PHAM IN FOR XRAY- 2 VIEW. GRAYSHEE & Y-VIEW
== END 2021-08-29 12:12 | disposition home or self-care (01) ==
LOC: ORSCSDS 06:19
PROVIDERS: Orthopaedic Surgery
PROC: 0RRK00Z Replacement of Left Shoulder Joint with Reverse Ball and Socket Synthetic Substitute, Open Approach (ICD-10-PCS; principal; 2021-08-29 07:30)
DX: M19.012 Primary osteoarthritis, left shoulder (principal); I12.9 Hypertensive chronic kidney disease with stage 1 through stage 4 chronic kidney disease, or unspecified chronic kidney disease; N18.9 Chronic kidney disease, unspecified; G47.33 Obstructive sleep apnea (adult) (pediatric); K21.9 Gastro-esophageal reflux disease without esophagitis; E78.5 Hyperlipidemia, unspecified; I69.311 Memory deficit following cerebral infarction; Z79.899 Other long term (current) drug therapy; Z95.0 Presence of cardiac pacemaker
CPT/HCPCS: 73030; A9270; C1713; C1776; J0171; J0696; J1100; J2250; J2405; J2704; J3010; J3370; J7030; J7060; J7120

== ENCOUNTER 2022-05-29 12:44 | Emergency (ER) | payer MEDICARE, BC ==
[~2022-05-29] VITALS: Ht 170.2 cm; Wt 65.8 kg
[~2022-05-29 12:44] MED LIST changes: +AZELASTINE HCL6 ML OP; +Amlodipine Bes2.5 MG PO; +DONEPEZIL HCL10 MG PO; +Inderal60 MG PO; +TIZA4 PO
== END 2022-05-29 15:19 | disposition home or self-care (01) ==
LOC: ER 12:44
DX: S02.32XA Fracture of orbital floor, left side, initial encounter for closed fracture (principal); I10 Essential (primary) hypertension; W01.198A Fall on same level from slipping, tripping and stumbling with subsequent striking against other object, initial encounter; Z79.899 Other long term (current) drug therapy; Z96.611 Presence of right artificial shoulder joint; Z87.891 Personal history of nicotine dependence
CPT/HCPCS: 70450; 70486

== ENCOUNTER 2024-05-05 18:08 | Emergency (ER) | payer MEDICARE, BC ==
[~2024-05-05] VITALS: Ht 172.7 cm; Wt 75.8 kg
[2024-05-05 21:27] LABS: Source, Urine Clean Catch
[2024-05-05 21:29] LABS: Appearance, Urine Clear (Clear); Bilirubin, Urine Neg (Neg); Blood, Urine 2+ (Neg); Color, Urine Yellow (P-Yellow); Glucose Qualitative, Urine Neg (Neg); Ketones, Urine Neg (Neg); Leukocyte Esterase, Urine 3+ (Neg); Nitrite, Urine Neg (Neg); Protein, Urine 1+ (Neg); Specific Gravity, Urine 1.015 (1.003-1.022); Urobilinogen, Urine NORM (Normal)
[2024-05-05 21:31] LABS: BASOPHILS ABSOLUTE AUTO 0.04 K/mm3 (0.00-0.23); BASOPHILS PERCENT AUTO 1 % (0-2); EOSINOPHILS ABSOLUTE AUTO 0.15 K/mm3 (0.00-0.68); EOSINOPHILS PERCENT AUTO 2 % (0-6); Hematocrit 37.1 % (33.0-51.0); Hemoglobin 12.1 g/dL (11.5-16.0); IMMATURE GRAN ABSOLUTE AUTO 0.02 K/mm3 (0.00-0.10); IMMATURE GRAN PERCENT AUTO 0 % (0-1); LYMPHOCYTES ABSOLUTE AUTO 1.44 K/mm3 (0.84-5.20); LYMPHOCYTES PERCENT AUTO 17 % (21-46); MONOCYTES ABSOLUTE AUTO 1.05 K/mm3 (0.16-1.47); MONOCYTES PERCENT AUTO 12 % (4-13); Mean Corpuscular HGB 31.8 pg (26.0-34.0); Mean Corpuscular HGB Conc 32.6 g/dL (31.5-36.5); Mean Corpuscular Volume 98 fL (80-100); Mean Platelet Volume 10.5 fL (9.1-12.4); NEUTROPHILS ABSOLUTE AUTO 5.86 K/mm3 (1.96-9.15); NEUTROPHILS PERCENT AUTO 68 % (41-73); Platelet Count 167 K/mm3 (150-400); RDW Coefficient Variation 12.6 % (11.7-14.2); RDW Standard Deviation 45.6 fL (35.1-46.3); White Blood Cell Count 8.56 K/mm3 (4.00-11.30)
[2024-05-05 21:39] LABS: Red Blood Cells, Urine 0-2 /hpf (0-2); White Blood Cells, Urine TNTC /hpf (0-5)
[2024-05-05 21:40] LABS: Bacteria Many /hpf; Squamous Epithelial Cells Rare /hpf (Few)
[2024-05-05 21:47] LABS: Bun/Creatinine Ratio 29.8 (12.0-20.0); Calcium, Blood 9.3 mg/dL (8.5-10.1); Creatinine, Blood 0.94 mg/dL (0.40-1.00); Potassium, Blood 4.2 mmol/L (3.5-5.5)
[2024-05-05] MEDS ORDERED: Cephalexin Monohydrate 500 MG Cap PO SCH (21:55)
[2024-05-05] MEDS ORDERED: QUEtiapine Fumarate 25 MG Tab PO ONE (23:00)
[2024-05-06] MEDS ORDERED: CEPH500 PO (07:50)
[2024-05-06 08:45] VITALS: BP 126/65
== END 2024-05-06 08:55 | disposition home or self-care (01) ==
LOC: ER 18:08
PROVIDERS: Student in an Organized Health Care Education/Training Program
DX: N39.0 Urinary tract infection, site not specified (principal); I10 Essential (primary) hypertension; F03.90 Unspecified dementia, unspecified severity, without behavioral disturbance, psychotic disturbance, mood disturbance, and anxiety; Z88.5 Allergy status to narcotic agent; Z88.2 Allergy status to sulfonamides; Z88.1 Allergy status to other antibiotic agents; Z79.899 Other long term (current) drug therapy; Z87.891 Personal history of nicotine dependence
CPT/HCPCS: 73502; 80048; 81001; 85025; 87077; 87086; 87186; 99284-25; A9270

== ENCOUNTER 2024-05-07 09:26 | Emergency (ER) | payer MEDICARE, BC ==
[~2024-05-07] VITALS: Ht 172.7 cm; Wt 68.0 kg
[~2024-05-07 09:26] MED LIST changes: +CEPH500 PO
[2024-05-07 09:31] VITALS: BP 143/66
[2024-05-07] MEDS ORDERED: Acetaminophen 500 MG Tab PO ONE (09:55)
[2024-05-07 10:53] LABS: BASOPHILS ABSOLUTE AUTO 0.03 K/mm3 (0.00-0.23); BASOPHILS PERCENT AUTO 0 % (0-2); EOSINOPHILS ABSOLUTE AUTO 0.05 K/mm3 (0.00-0.68); EOSINOPHILS PERCENT AUTO 1 % (0-6); Hemoglobin 12.1 g/dL (11.5-16.0); IMMATURE GRAN ABSOLUTE AUTO 0.03 K/mm3 (0.00-0.10); IMMATURE GRAN PERCENT AUTO 0 % (0-1); LYMPHOCYTES PERCENT AUTO 8 % (21-46); MONOCYTES ABSOLUTE AUTO 1.03 K/mm3 (0.16-1.47); MONOCYTES PERCENT AUTO 12 % (4-13); Mean Corpuscular HGB 31.8 pg (26.0-34.0); Mean Corpuscular HGB Conc 32.7 g/dL (31.5-36.5); Mean Corpuscular Volume 97 fL (80-100); Mean Platelet Volume 10.5 fL (9.1-12.4); NEUTROPHILS ABSOLUTE AUTO 6.52 K/mm3 (1.96-9.15); NEUTROPHILS PERCENT AUTO 78 % (41-73); Platelet Count 162 K/mm3 (150-400); RDW Coefficient Variation 12.6 % (11.7-14.2); RDW Standard Deviation 45.2 fL (35.1-46.3); Red Blood Cell Count 3.81 M/mm3 (3.80-5.20); White Blood Cell Count 8.36 K/mm3 (4.00-11.30)
[2024-05-07 10:53] LABS: Source, Urine Straight Cath
[2024-05-07 10:59] LABS: Appearance, Urine Hazy (Clear); Bilirubin, Urine Neg (Neg); Blood, Urine 2+ (Neg); Color, Urine Yellow (P-Yellow); Glucose Qualitative, Urine Neg (Neg); Ketones, Urine Neg (Neg); Leukocyte Esterase, Urine 1+ (Neg); Nitrite, Urine Neg (Neg); Protein, Urine 2+ (Neg); Specific Gravity, Urine 1.015 (1.003-1.022); Urobilinogen, Urine NORM (Normal)
[2024-05-07 11:13] LABS: Red Blood Cells, Urine 0-2 /hpf (0-2)
[2024-05-07 11:14] LABS: Squamous Epithelial Cells Rare /hpf (Few)
[2024-05-07 11:15] LABS: Amorphous Light (0-Heavy); Bacteria Few /hpf
[2024-05-07 11:35] LABS: Albumin, Blood 3.4 g/dL (3.4-5.0); Albumin/Globulin Ratio 0.8 (0.8-1.8); Bilirubin, Total 0.7 mg/dL (0.1-1.0); Bun/Creatinine Ratio 20.7 (12.0-20.0); Calcium, Blood 9.4 mg/dL (8.5-10.1); Creatinine, Blood 0.87 mg/dL (0.40-1.00); Globulin, Blood 4.3 g/dL (2.2-4.0); Potassium, Blood 4.5 mmol/L (3.5-5.5); Total Protein, Blood 7.7 g/dL (6.4-8.2)
== END 2024-05-07 12:46 | disposition home or self-care (01) ==
LOC: ER 09:26
PROVIDERS: Student in an Organized Health Care Education/Training Program
DX: N39.0 Urinary tract infection, site not specified (principal); I10 Essential (primary) hypertension; Z86.59 Personal history of other mental and behavioral disorders; Z71.89 Other specified counseling; Z87.891 Personal history of nicotine dependence
CPT/HCPCS: 80053; 81001; 85025; A9270; P9612

== ENCOUNTER 2024-06-27 09:44 | Inpatient (IN) | payer MEDICARE, BC ==
[~2024-06-27] VITALS: Ht 167.6 cm; Wt 70.1 kg
[2024-06-27 10:22] LABS: BASOPHILS ABSOLUTE AUTO 0.04 K/mm3 (0.00-0.23); BASOPHILS PERCENT AUTO 0 % (0-2); EOSINOPHILS PERCENT AUTO 1 % (0-6); Hemoglobin 10.8 g/dL (11.5-16.0); IMMATURE GRAN ABSOLUTE AUTO 0.04 K/mm3 (0.00-0.10); IMMATURE GRAN PERCENT AUTO 0 % (0-1); LYMPHOCYTES ABSOLUTE AUTO 0.98 K/mm3 (0.84-5.20); LYMPHOCYTES PERCENT AUTO 10 % (21-46); MONOCYTES ABSOLUTE AUTO 1.23 K/mm3 (0.16-1.47); MONOCYTES PERCENT AUTO 13 % (4-13); Mean Corpuscular HGB 30.7 pg (26.0-34.0); Mean Corpuscular HGB Conc 32.7 g/dL (31.5-36.5); Mean Corpuscular Volume 94 fL (80-100); Mean Platelet Volume 10.3 fL (9.1-12.4); NEUTROPHILS ABSOLUTE AUTO 7.24 K/mm3 (1.96-9.15); NEUTROPHILS PERCENT AUTO 75 % (41-73); Platelet Count 280 K/mm3 (150-400); RDW Coefficient Variation 12.9 % (11.7-14.2); RDW Standard Deviation 44.7 fL (35.1-46.3); Red Blood Cell Count 3.52 M/mm3 (3.80-5.20); White Blood Cell Count 9.63 K/mm3 (4.00-11.30)
[2024-06-27 10:56] LABS: Source, Urine Straight Cath
[2024-06-27] MEDS ORDERED: ARIPIPRAZOLE2 M1 PO (11:15)
[2024-06-27 11:16] LABS: Albumin/Globulin Ratio 0.6 (0.8-1.8); Bilirubin, Total 0.7 mg/dL (0.1-1.0); Bun/Creatinine Ratio 17.7 (12.0-20.0); Calcium, Blood 9.5 mg/dL (8.5-10.1); Creatinine, Blood 0.74 mg/dL (0.40-1.00); Globulin, Blood 4.9 g/dL (2.2-4.0); Magnesium, Blood 2.1 mg/dL (1.6-2.4); Potassium, Blood 4.2 mmol/L (3.5-5.5); Total Protein, Blood 7.9 g/dL (6.4-8.2)
[2024-06-27] MEDS ORDERED: ESCI10 PO (11:19)
[2024-06-27 11:23] LABS: Appearance, Urine Clear (Clear); Bilirubin, Urine Neg (Neg); Blood, Urine 2+ (Neg); Color, Urine Yellow (P-Yellow); Glucose Qualitative, Urine Neg (Neg); Ketones, Urine Neg (Neg); Leukocyte Esterase, Urine Neg (Neg); Nitrite, Urine Neg (Neg); Protein, Urine 3+ (Neg); Urobilinogen, Urine NORM (Normal)
[2024-06-27] MEDS ORDERED: MIRT15ST PO (11:25)
[2024-06-27] MEDS ORDERED: TROSPIUM CHLORI20 M1 PO (11:26)
[2024-06-27 11:33] LABS: Amorphous Light (0-Heavy); Bacteria Not Seen /hpf; Squamous Epithelial Cells Not Seen /hpf (Few); White Blood Cells, Urine 0-2 /hpf (0-5)
[2024-06-27] MEDS ORDERED: NS 1,000 ML IV SCH (11:45)
[2024-06-27] MEDS ORDERED: Ondansetron 4 MG TAB PO PRN (15:55)
--- NOTE | 2024-06-27 17:50 | NUR ---
PT ADMITTED FROM THE ER.
[2024-06-27 17:55] VITALS: BP 176/67
[2024-06-27 19:33] VITALS: BP 159/74
[2024-06-28 04:16] VITALS: BP 157/74
[2024-06-28 05:16] LABS: BASOPHILS ABSOLUTE AUTO 0.04 K/mm3 (0.00-0.23); BASOPHILS PERCENT AUTO 0 % (0-2); EOSINOPHILS ABSOLUTE AUTO 0.12 K/mm3 (0.00-0.68); EOSINOPHILS PERCENT AUTO 1 % (0-6); Hematocrit 29.8 % (33.0-51.0); Hemoglobin 9.9 g/dL (11.5-16.0); IMMATURE GRAN ABSOLUTE AUTO 0.04 K/mm3 (0.00-0.10); IMMATURE GRAN PERCENT AUTO 0 % (0-1); LYMPHOCYTES ABSOLUTE AUTO 1.17 K/mm3 (0.84-5.20); LYMPHOCYTES PERCENT AUTO 13 % (21-46); MONOCYTES ABSOLUTE AUTO 1.27 K/mm3 (0.16-1.47); MONOCYTES PERCENT AUTO 14 % (4-13); Mean Corpuscular HGB 31.2 pg (26.0-34.0); Mean Corpuscular HGB Conc 33.2 g/dL (31.5-36.5); Mean Corpuscular Volume 94 fL (80-100); Mean Platelet Volume 9.9 fL (9.1-12.4); NEUTROPHILS ABSOLUTE AUTO 6.41 K/mm3 (1.96-9.15); NEUTROPHILS PERCENT AUTO 71 % (41-73); Platelet Count 248 K/mm3 (150-400); RDW Coefficient Variation 12.8 % (11.7-14.2); RDW Standard Deviation 44.2 fL (35.1-46.3); Red Blood Cell Count 3.17 M/mm3 (3.80-5.20); White Blood Cell Count 9.05 K/mm3 (4.00-11.30)
--- NOTE | 2024-06-28 05:30 | NUR ---
A&O TO FIRST NAME ONLY CONFUSED. MONITOR AND STORAGE BIN TENDER EQUAL X 4, PPP, C/O NECK PAIN ON L SIDE OF NECK. UNABLE TO GIVE ACCURATE PAIN RATING SCALE. HOB WAS LOWERED AND PILLOW ADJUSTED AND PT FELL ASLEEP T/O THE SHIFT.
[2024-06-28 05:37] LABS: Magnesium, Blood 2.1 mg/dL (1.6-2.4)
[2024-06-28 05:38] LABS: Albumin, Blood 2.6 g/dL (3.4-5.0); Albumin/Globulin Ratio 0.6 (0.8-1.8); Bilirubin, Total 0.7 mg/dL (0.1-1.0); Bun/Creatinine Ratio 17.3 (12.0-20.0); Calcium, Blood 8.7 mg/dL (8.5-10.1); Creatinine, Blood 0.81 mg/dL (0.40-1.00); Globulin, Blood 4.2 g/dL (2.2-4.0); Potassium, Blood 3.9 mmol/L (3.5-5.5); Total Protein, Blood 6.8 g/dL (6.4-8.2)
[2024-06-28 07:30] VITALS: BP 154/63
[2024-06-28] MEDS ORDERED: Enoxaparin 40 MG/0.4 ML SYR SC SCH (09:00)
--- NOTE | 2024-06-28 12:00 | NUR ---
SPOKE WITH PT'S , JOANA, REGARDING WISHES TO DISCHARGE THE PT BACK TO HOME THIS AFTERNOON. EXPRESSED THAT HE WOULD RATHER SAVE FUNDING TOWARDS THE HOSPITAL STAY AND USE IT TOWARDS PAYING FOR HER CARE FACILITY EXPENSES. DELBERT NOTIFIED OF 'S WISHES.
--- NOTE | 2024-06-28 15:40 | NUR ---
PT DISCHARGED TO HOME WITH . ALL VALAUBLES RETURNED AND SENT HOME WITH THE PT. DISCHARGE INSTRUCTIONS PROVIDED AND EDUCATED ON AT TIME OF DISCHARGE.
== END 2024-06-28 15:38 | disposition home or self-care (01) | DRG 884 ==
LOC: ER 09:44 → MEDS 15:54
PROVIDERS: Emergency Medicine; ADMIT Internal Medicine
DX: F01.50 Vascular dementia, unspecified severity, without behavioral disturbance, psychotic disturbance, mood disturbance, and anxiety (principal); F32.A Depression, unspecified; I10 Essential (primary) hypertension; K21.9 Gastro-esophageal reflux disease without esophagitis; G47.33 Obstructive sleep apnea (adult) (pediatric); Z90.49 Acquired absence of other specified parts of digestive tract; Z98.890 Other specified postprocedural states; Z96.611 Presence of right artificial shoulder joint; Z95.0 Presence of cardiac pacemaker; Z96.612 Presence of left artificial shoulder joint; Z87.891 Personal history of nicotine dependence; Z74.01 Bed confinement status; M19.90 Unspecified osteoarthritis, unspecified site; Z88.8 Allergy status to other drugs, medicaments and biological substances; Z88.2 Allergy status to sulfonamides; Z79.899 Other long term (current) drug therapy; R55 Syncope and collapse
CPT/HCPCS: 36415; 80053; 81001; 83735; 85025; 93296; 96360; 99285-25; J1650; J7030; P9612

== ENCOUNTER → 2024-08-05 | Outpatient (CLI) | payer MEDICARE, BC ==
[~2024-08-05] MED LIST changes: +ARIPIPRAZOLE2 M1 PO; +ESCI10 PO; +MIRT15ST PO; +TROSPIUM CHLORI20 M1 PO
[2024-08-05 14:13] LABS: Appearance, Urine Cloudy (Clear); Bilirubin, Urine Neg (Neg); Blood, Urine 1+ (Neg); Glucose Qualitative, Urine Neg (Neg); Ketones, Urine Neg (Neg); Leukocyte Esterase, Urine 3+ (Neg); Nitrite, Urine Pos (Neg); Protein, Urine 2+ (Neg); Urobilinogen, Urine NORM (Normal)
[2024-08-05 14:19] LABS: Color, Urine Pale Yellow (P-Yellow)
[2024-08-05 14:21] LABS: Bacteria Many /hpf; Red Blood Cells, Urine 0-2 /hpf (0-2); Squamous Epithelial Cells Rare /hpf (Few); White Blood Cells, Urine TNTC /hpf (0-5)
[2024-08-05 14:22] LABS: Mucus Light (0-Heavy); Transitional Epithelial Cells Rare /hpf (0-Rare)
== END | disposition home or self-care (01) ==
LOC: LAB SHORT 11:05 → LAB 11:05
PROVIDERS: Family Medicine
DX: N39.0 Urinary tract infection, site not specified (principal)
CPT/HCPCS: 81001; 87077; 87086; 87186

== ENCOUNTER → 2025-02-10 | Outpatient (CLI) | payer MEDICARE, BC ==
[2025-02-10 15:04] LABS: Source, Urine Clean Catch
[2025-02-10 16:19] LABS: Bilirubin, Urine Neg (Neg); Color, Urine Yellow (P-Yellow); Glucose Qualitative, Urine Neg (Neg); Ketones, Urine Neg (Neg); Leukocyte Esterase, Urine Neg (Neg); Protein, Urine 2+ (Neg); Specific Gravity, Urine 1.020 (1.003-1.022); Urobilinogen, Urine NORM (Normal)
[2025-02-10 16:39] LABS: Red Blood Cells, Urine 0-2 /hpf (0-2); White Blood Cells, Urine 0-2 /hpf (0-5)
== END ==
LOC: LAB 15:02 → LAB SHORT 15:02
PROVIDERS: Internal Medicine Hematology & Oncology
DX: N39.0 Urinary tract infection, site not specified (principal)
CPT/HCPCS: 81001